=== PATIENT | male | born 1950 | race Caucasian/White ===

== ENCOUNTER 2020-07-24 07:21 | Emergency (ER) | payer MEDICARE, OTHER ==
[~2020-07-24] VITALS: Ht 162.6 cm; Wt 73.5 kg
--- NOTE | 2020-07-24 07:25 | NUR ---
active nose bleed. pressure applied.
[2020-07-24] MEDS ORDERED: PHENYLEPHRINE 1% (EXTRA STR) NASAL SPRAY NS ONE ×2 (07:30→07:41)
--- NOTE | 2020-07-24 09:10 | NUR ---
yesika seay packed the right nostril. pt tolerated well. will observe the pt.
--- NOTE | 2020-07-24 09:27 | NUR ---
nose blled stopped at this point. Patient discharged to home in stable condition. Written and verbal after care instructions given. Patient verbalizes understanding of instructions. Stressed follow up or return to ER for worsening s/s.
--- NOTE | 2020-07-24 09:41 | NUR ---
Maik valenzuela in [facility] - 07/24/20 at 0941 by RISHI active nose bleed, pressure applied.
[2020-07-24 09:43] VITALS: BP 121/61
[2020-07-24] MEDS ORDERED: ALPR1TAB7 PO (22:21)
[2020-07-26] MEDS ORDERED: METH4TAB3 PO (12:53)
[2020-07-26] MEDS ORDERED: AZIT500T PO (12:53)
== END 2020-07-24 09:30 | disposition home or self-care (01) ==
LOC: ER 07:21
DX: R04.0 Epistaxis (principal); D68.32 Hemorrhagic disorder due to extrinsic circulating anticoagulants; T45.525A Adverse effect of antithrombotic drugs, initial encounter; Y92.89 Other specified places as the place of occurrence of the external cause; Z95.5 Presence of coronary angioplasty implant and graft
CPT/HCPCS: 30901; A4663

== ENCOUNTER 2020-07-24 17:40 | Inpatient (IN) | payer MEDICARE, OTHER ==
[~2020-07-24] VITALS: Ht 162.6 cm; Wt 79.0 kg
[2020-07-24] MEDS: AZITHROMYCIN IV 500 MG in IV DEXTROSE 5% 250 ML IV SCH (01:10)
[2020-07-24] MEDS ORDERED: EPINEPHRINE-PF 1:1000 1 MG/ML AMPUL IV STA ×2 (17:49)
[2020-07-24] MEDS ORDERED: EPINEPHRINE 1 MG/1 ML AMP ONE (17:55)
[2020-07-24] MEDS ORDERED: SILVER NITRATE APPLICATOR STICK EACH TP ONE ×2 (18:36→18:45)
[2020-07-24] MEDS ORDERED: PHENYLEPHRINE 1% (EXTRA STR) NASAL SPRAY NS ONE ×2 (18:37→18:45)
[2020-07-24] MEDS ORDERED: LIDOCAINE 4% TOPICAL 50 ML BOTTLE ONE (18:40)
[2020-07-24] MEDS ORDERED: LIDOCAINE 4% TOPICAL 50 ML BOTTLE TP ONE (18:45)
[2020-07-24 19:21] LABS: BASOPHILS # (AUTO) 0.1 K/uL (0.0-8.0); BASOPHILS % (AUTO) 0.8 % (0.0-2.0); EOSINOPHILS % (AUTO) 0.3 % (0.0-7.0); HEMATOCRIT 39.9 % (36.7-47.1); HEMOGLOBIN 13.4 g/dL (12.5-16.3); LYMPHOCYTES % (AUTO) 8.2 % (20.5-51.5); MEAN CORPUSCULAR HGB CONC 34 g/dL (32.5-36.3); MEAN CORPUSCULAR VOLUME 89.5 fL (73.0-96.2); MONOCYTES # (AUTO) 1.1 K/uL (2.0-10.0); MONOCYTES % (AUTO) 9.7 % (0.0-11.0); NEUTROPHILS # (AUTO) 9.5 K/uL (1.8-8.9); PLATELET COUNT (AUTO) 328 K/uL (152-348); RED BLOOD CELL COUNT(AUTO) 4.46 MIL/uL (4.06-5.63); WHITE BLOOD COUNT (AUTO) 11.7 K/uL (3.6-10.2)
[2020-07-24] MEDS ORDERED: OXYMETAZOLINE NASAL 0.05% 15 ML SPRAY NS ONE (19:22)
[2020-07-24 19:34] LABS: CREATININE 1.3 mg/dL (0.6-1.3)
--- NOTE | 2020-07-24 21:07 | NUR ---
Paged [employer] for panel call per ER MD request. Pending call back from Dr. Merlos.
[2020-07-24] MEDS ORDERED: CEFTRIAXONE 1 G in IV DEXTROSE 5% 50 ML IV ONE (21:45)
[2020-07-24] MEDS ORDERED: ACETAMINOPHEN 325 MG TABLET PO PRN (22:15)
[2020-07-24] MEDS ORDERED: CLONIDINE HCL 0.1 MG TABLET PO PRN (22:15)
[2020-07-24] MEDS ORDERED: MAGNESIUM HYDROXIDE 30 ML LIQUID UDC PO PRN (22:15)
[2020-07-24] MEDS ORDERED: MORPHINE SULFATE 2 MG/1 ML DISP.SYRIN IV PRN (22:15)
[2020-07-24] MEDS ORDERED: ONDANSETRON 4 MG/2 ML VIAL IV PRN (22:15)
[2020-07-24] MEDS ORDERED: ALPR1TAB7 PO (22:21)
[2020-07-24] MEDS ORDERED: ONDANSETRON 4 MG/2 ML VIAL ONE (23:03)
[2020-07-24] MEDS ORDERED: ALPRAZOLAM 0.5 MG TABLET ONE (23:06)
[2020-07-24] MEDS ORDERED: ALPRAZOLAM 0.25 MG TABLET PO ONE (23:15)
[2020-07-25] MEDS ORDERED: AZITHROMYCIN 500 MG VIAL IV ONE (01:11)
--- NOTE | 2020-07-25 04:13 | NUR ---
Report given to KIERSTEN Lopez for TELE admission.
[2020-07-25 04:31] VITALS: BP 112/67
--- NOTE | 2020-07-25 04:31 | NUR ---
Received pt via varsha from ED. No s/s of acute distress noted. Pt on RA denies SOB and pain. Bilateral nares packing in place. Safety measures in place, bed locked, COVID isolation precautions in place.
--- NOTE | 2020-07-25 04:39 | NUR ---
Patient transported to TELE in stable condition.
--- NOTE | 2020-07-25 08:00 | NUR ---
Awake, alert, oriented x 4, sitting upright on the bed. Both nares with packing, with dried blood. Noted spitting out blood with clots large amount in the bucket. Suction setup with [place].
[2020-07-25 09:03] LABS: BASOPHILS % (AUTO) 0.3 % (0.0-2.0); EOSINOPHILS % (AUTO) 0.1 % (0.0-7.0); HEMATOCRIT 35.3 % (36.7-47.1); MEAN CORPUSCULAR HEMOGLOBIN 30.6 uug (23.8-33.4); MEAN CORPUSCULAR HGB CONC 34 g/dL (32.5-36.3); MEAN CORPUSCULAR VOLUME 89.7 fL (73.0-96.2); MONOCYTES # (AUTO) 1.2 K/uL (2.0-10.0); MONOCYTES % (AUTO) 10.6 % (0.0-11.0); PLATELET COUNT (AUTO) 319 K/uL (152-348); RED BLOOD CELL COUNT(AUTO) 3.93 MIL/uL (4.06-5.63); WHITE BLOOD COUNT (AUTO) 11.3 K/uL (3.6-10.2)
[2020-07-25 09:23] LABS: THYROID STIMULATING HORMONE 1.247 mIU/mL (0.358-3.740)
[2020-07-25 09:29] LABS: BILIRUBIN,TOTAL 0.2 mg/dL (0.2-1.0); CREATININE 1.9 mg/dL (0.6-1.3); MAGNESIUM 2.1 mg/dL (1.8-2.4); PHOSPHOROUS 3.2 mg/dL (2.5-4.9); POTASSIUM 4.1 mmol/L (3.5-5.1); TOTAL PROTEIN, SERUM 7.7 g/dL (6.4-8.2)
[2020-07-25] MEDS: PANTOPRAZOLE SODIUM 40 MG TABLET.DR PO SCH (10:37)
[2020-07-25] MEDS: DEXAMETHASONE SOD PHOSPHATE 4 MG INJ IV SCH (10:38)
[2020-07-25 11:59] VITALS: BP 127/69
[2020-07-25] MEDS ORDERED: ALPRAZOLAM 0.5 MG TABLET PO SCH ×2 (12:45→17:00)
--- NOTE | 2020-07-25 13:05 | NUR ---
Anxious, Xanax started.
[2020-07-25] MEDS ORDERED: IV NS 1000 ML 1,000 ML IV PRN (14:45)
--- NOTE | 2020-07-25 15:10 | NUR ---
Patient complaining of pain nasal, noted nose enlarged with dried blood on nasal packing. Noted large amount of suctioned blood orally with clots noted. Harvey informed. Transfer coordinated by CM. IVF started
[2020-07-25 15:51] VITALS: BP 128/69
--- NOTE | 2020-07-25 18:18 | NUR ---
Still with bloody nasal drip, suctioning with [place]. Endorsed for further care
[2020-07-25] MEDS ORDERED: DOCUSATE SODIUM 100 MG CAPSULE PO SCH (21:00)
[2020-07-25] MEDS: ALPRAZOLAM 0.5 MG TABLET PO SCH (21:32)
[2020-07-25 21:53] VITALS: BP 143/72
[2020-07-25] MEDS: AZITHROMYCIN IV 500 MG in IV DEXTROSE 5% 250 ML IV SCH (22:17)
--- NOTE | 2020-07-25 23:40 | NUR ---
Received call from [facility], spoke with Daphnie. Stating they are currently unable to find a bed, limited availability.
[2020-07-26 02:23] VITALS: BP 139/73
--- NOTE | 2020-07-26 06:08 | NUR ---
Moderate amount of bloody drainage at the beginning of the shift. Pt stated this morning that the bleeding has stopped and no longer feeling bloody nasal drainage. C/o discomfort and pressure from nares packing and asking for them to be deflated. Will endorse to oncoming staff.
[2020-07-26] MEDS: PANTOPRAZOLE SODIUM 40 MG TABLET.DR PO SCH (06:09)
[2020-07-26 07:39] VITALS: BP 139/55
[2020-07-26 09:20] LABS: CREATININE 1.4 mg/dL (0.6-1.3); POTASSIUM 3.9 mmol/L (3.5-5.1)
[2020-07-26 09:32] LABS: BASOPHILS % (AUTO) 0.1 % (0.0-2.0); HEMATOCRIT 29.2 % (36.7-47.1); LYMPHOCYTES # (AUTO) 1.5 K/uL (20.0-40.0); MEAN CORPUSCULAR HEMOGLOBIN 30.6 uug (23.8-33.4); MEAN CORPUSCULAR HGB CONC 34 g/dL (32.5-36.3); MEAN CORPUSCULAR VOLUME 89.8 fL (73.0-96.2); MONOCYTES # (AUTO) 1.2 K/uL (2.0-10.0); MONOCYTES % (AUTO) 9.9 % (0.0-11.0); NEUTROPHILS # (AUTO) 9.7 K/uL (1.8-8.9); PLATELET COUNT (AUTO) 284 K/uL (152-348); RED BLOOD CELL COUNT(AUTO) 3.25 MIL/uL (4.06-5.63); WHITE BLOOD COUNT (AUTO) 12.5 K/uL (3.6-10.2)
[2020-07-26] MEDS: ALPRAZOLAM 0.5 MG TABLET PO SCH (09:35)
[2020-07-26] MEDS: DEXAMETHASONE SOD PHOSPHATE 4 MG INJ IV SCH (09:36)
[2020-07-26 11:14] VITALS: BP 144/55
[2020-07-26] MEDS ORDERED: AZIT500T PO (12:53)
[2020-07-26] MEDS ORDERED: METH4TAB3 PO (12:53)
[2020-07-26 15:14] VITALS: BP 135/81
--- NOTE | 2020-07-26 17:11 | NUR ---
Pt. for discharge at 630pm. cupola melter helper by son in stable condition.
--- NOTE | 2020-07-26 18:45 | NUR ---
Pt. discharge to home via private car in stable condition. Pt. bulk picker by son. Pt. remove IV access and arm band.
== END 2020-07-26 18:45 | disposition home or self-care (01) | DRG 150 ==
LOC: ER 17:41 → TELE3 07-25 04:20
PROVIDERS: ADMIT Nurse Practitioner Acute Care; ATTEND Nurse Practitioner Acute Care
PROC: 093K7ZZ Control Bleeding in Nasal Mucosa and Soft Tissue, Via Natural or Artificial Opening (ICD-10-PCS; principal; 2020-07-24)
DX: R04.0 Epistaxis (principal); U07.1 COVID-19; N17.0 Acute kidney failure with tubular necrosis; D62 Acute posthemorrhagic anemia; I10 Essential (primary) hypertension; I25.10 Atherosclerotic heart disease of native coronary artery without angina pectoris; Z79.02 Long term (current) use of antithrombotics/antiplatelets; Z79.82 Long term (current) use of aspirin; I73.9 Peripheral vascular disease, unspecified
CPT/HCPCS: 30901; 36415; 70030-TC; 71045; 83550; 83735; 84100; 84443; 85025; 85610; 85730; A4217; A4663; G0378; J0171; J0456; J1100; J2270; J2405; J7030; J7060

== ENCOUNTER 2020-09-28 20:58 | Emergency (ER) | payer MEDICARE, OTHER ==
[~2020-09-28] VITALS: Ht 170.2 cm; Wt 79.4 kg
[~2020-09-28 20:58] MED LIST: ALPR1TAB7 PO; AZIT500T PO; METH4TAB3 PO
--- NOTE | 2020-09-28 21:20 | NUR ---
copier repair technician taking patient to CT
--- NOTE | 2020-09-28 21:30 | NUR ---
cath lab radiological technologist in room to draw labs from patient.
--- NOTE | 2020-09-28 21:40 | NUR ---
Patient is resting on bed, looking at environment. No acute distress noted at this time.
[2020-09-28 21:48] LABS: BASOPHILS # (AUTO) 0.1 K/uL (0.0-8.0); BASOPHILS % (AUTO) 0.9 % (0.0-2.0); EOSINOPHILS # (AUTO) 0.1 K/uL (0.0-0.7); EOSINOPHILS % (AUTO) 1.8 % (0.0-7.0); HEMATOCRIT 36.5 % (36.7-47.1); HEMOGLOBIN 12.1 g/dL (12.5-16.3); LYMPHOCYTES # (AUTO) 1.6 K/uL (20.0-40.0); LYMPHOCYTES % (AUTO) 20.9 % (20.5-51.5); MEAN CORPUSCULAR HEMOGLOBIN 27.7 uug (23.8-33.4); MEAN CORPUSCULAR HGB CONC 33 g/dL (32.5-36.3); MEAN CORPUSCULAR VOLUME 83.8 fL (73.0-96.2); MONOCYTES # (AUTO) 0.6 K/uL (2.0-10.0); MONOCYTES % (AUTO) 7.4 % (0.0-11.0); NEUTROPHILS # (AUTO) 5.2 K/uL (1.8-8.9); PLATELET COUNT (AUTO) 323 K/uL (152-348); RED BLOOD CELL COUNT(AUTO) 4.35 MIL/uL (4.06-5.63); WHITE BLOOD COUNT (AUTO) 7.6 K/uL (3.6-10.2)
[2020-09-28 21:49] LABS: *BILIRUBIN,URIN NEGATIVE (NEGATIVE); *CLARITY,URINE CLEAR (CLEAR); *COLOR,URINE YELLOW (YELLOW); *KETONES,URINE NEGATIVE (NEGATIVE); *UROBILINOGEN,URINE 0.2 E.U./dl (NORMAL); LEUKOCYTE ESTERASE ,URINE NEGATIVE (NEGATIVE); NITRITE, URINE NEGATIVE (NEGATIVE); PH,URINE 5.5 (5.0-8.0); UGLUCOSE NEGATIVE (NEGATIVE)
[2020-09-28 21:50] LABS: *BLOOD, URINE TRACE INTACT (NEGATIVE)
[2020-09-28 21:54] LABS: CREATININE 1.1 mg/dL (0.6-1.3); POTASSIUM 3.8 mmol/L (3.5-5.1)
[2020-09-28 22:05] LABS: BILIRUBIN,DIRECT 0.1 mg/dL (0.0-0.2); BILIRUBIN,TOTAL 0.1 mg/dL (0.2-1.0); TOTAL PROTEIN, SERUM 7.9 g/dL (6.4-8.2)
[2020-09-28 22:29] LABS: BACTERIA,URINE NONE SEEN /HPF (NONE SEEN); SQUAMOUS EPITHELIAL CELL,UR FEW /HPF (NONE SEEN); WBC,URINE 0-3 /HPF (0-3)
[2020-09-28] MEDS ORDERED: ONDANSETRON ODT 4 MG TAB.RAPDIS SL ONE (22:45)
[2020-09-28] MEDS ORDERED: ONDANSETRON ODT 4 MG TAB.RAPDIS ONE (23:05)
[2020-09-28] MEDS ORDERED: IV NS 1000 ML 1,000 ML IV ONE (23:15)
[2020-09-28] MEDS ORDERED: KETOROLAC TROMETHAMINE 15 MG INJ IVP ONE (23:15)
--- NOTE | 2020-09-28 23:20 | NUR ---
digital cartographic technician in room to take patient to CT
[2020-09-28] MEDS ORDERED: KETOROLAC TROMETHAMINE 15 MG INJ ONE (23:40)
--- NOTE | 2020-09-29 00:31 | NUR ---
Dr. Huynh called for urology consult, call transferred to Dr. Brice.
--- NOTE | 2020-09-29 00:40 | NUR ---
Patient resting on bed in room, eyes closed. No apparent distress at this time.
[2020-09-29 01:00] VITALS: BP 177/88
--- NOTE | 2020-09-29 01:00 | NUR ---
Patient discharged to home in stable condition. Written and verbal after care instructions given. Patient verbalizes understanding of instructions. Stressed follow up or return to ER for worsening s/s. Patient ambulates without difficulty, Rx given, instructed to not drive, left with all belongings.
== END 2020-09-29 01:00 | disposition home or self-care (01) ==
LOC: ER 20:58
DX: N20.1 Calculus of ureter (principal); F17.210 Nicotine dependence, cigarettes, uncomplicated; Z20.822 Contact with and (suspected) exposure to COVID-19; K57.30 Diverticulosis of large intestine without perforation or abscess without bleeding; N28.1 Cyst of kidney, acquired; D64.9 Anemia, unspecified; Z95.820 Peripheral vascular angioplasty status with implants and grafts; I10 Essential (primary) hypertension; E78.5 Hyperlipidemia, unspecified
CPT/HCPCS: 36415; 70450; 74176; 80048; 80076; 81001; 83690; 84484; 85025; 87426; 93005; 96361; 96374; 96375; 99285; 99406; J1885; 70030-TC; A4663; J7030; Q0162

== ENCOUNTER 2021-06-18 19:41 | Emergency (ER) | payer MEDICARE ==
[~2021-06-18] VITALS: Ht 177.8 cm; Wt 81.6 kg
--- NOTE | 2021-06-18 21:00 | NUR ---
ERMD INTO EVAL PATIENT.
[2021-06-18] MEDS ORDERED: GABA300C PO (21:10)
--- NOTE | 2021-06-18 21:16 | NUR ---
Patient discharged to home in stable condition. Written and verbal after care instructions given. Patient verbalizes understanding of instructions. Stressed follow up or return to ER for worsening s/s.
[2021-06-18 21:17] VITALS: BP 159/85
== END 2021-06-18 21:17 | disposition home or self-care (01) ==
LOC: ER 19:41
DX: M54.16 Radiculopathy, lumbar region (principal); F17.210 Nicotine dependence, cigarettes, uncomplicated
CPT/HCPCS: A4663